=== PATIENT | female | born 1935 | race Caucasian/White ===

== ENCOUNTER 2019-09-17 00:01 | Emergency (ER) | payer OTHER, BC ==
[~2019-09-17] VITALS: Ht 157.5 cm; Wt 69.4 kg
[~2019-09-17 00:01] MED LIST: CRESTOR5 MG PO; NEXIUM2.5 MG/Pac PO; ONE DAILY MULTI1 TA2 PO; SYN15 PO; VITAMIN C1 TAB PO
[2019-09-17 00:06] VITALS: Ht 157.5 cm; Wt 69.4 kg
[2019-09-17 00:33] LABS: BASOPHIL % 0.8 % (0-2); PLATELET COUNT 190 x10^3mcL (130-400)
[2019-09-17 00:53] LABS: CALCIUM 9.2 mg/dL (8.5-10.1); CARBON DIOXIDE 28.7 mmol/L (21-32); CHLORIDE SERUM 102 mmol/L (98-107); CREATININE SERUM 0.9 mg/dL (0.6-1.0); GLUCOSE SERUM 110 mg/dL (74-106); POTASSIUM SERUM 3.4 mmol/L (3.5-5.1); SODIUM SERUM 139 mmol/L (136-145)
[2019-09-17 01:06] LABS: ALBUMIN 3.6 g/dL (3.4-5.0); ALKALINE PHOSPHATASE 110 U/L (46-116); ALT/SGPT 20 U/L (14-59); AST/SGOT 13 U/L (15-37); BILIRUBIN TOTAL 0.19 mg/dL (0.20-1.00); HDL CHOLESTEROL 46 mg/dL (40-60); PHOSPHOROUS 3.3 mg/dL (2.5-4.9); TOTAL PROTEIN, SERUM 7.1 g/dL (6.4-8.2)
[2019-09-17 01:12] LABS: CHOLESTEROL 258 mg/dL (<200)
[2019-09-17 01:30] VITALS: BP 151/73
== END 2019-09-17 01:39 | disposition home or self-care (01) ==
LOC: ED 00:01
PROVIDERS: Emergency Medicine
DX: I16.0 Hypertensive urgency (principal); F41.9 Anxiety disorder, unspecified; R42 Dizziness and giddiness; R51 Headache
CPT/HCPCS: 36415